=== PATIENT | male | born 1970 | race Caucasian/White ===

== ENCOUNTER 2021-06-04 14:00 | Emergency (ER) | payer MEDICAID ==
[~2021-06-04] VITALS: Ht 177.8 cm; Wt 95.3 kg
--- NOTE | 2021-06-04 14:17 | NUR ---
TO ER BED 4, C/O BILATERAL LOWER LEG SWELLING AND REDNESS FOR 1WK, AAOX4, BREATHING EVEN AND UNLABORED, AT BEDSIDE FOR EVAL
[2021-06-04] MEDS ORDERED: CEPH500C2 PO (14:26)
[2021-06-04] MEDS ORDERED: SULF1TAB48 PO (14:26)
[2021-06-04 14:32] VITALS: BP 119/81
== END 2021-06-04 14:32 | disposition home or self-care (01) ==
LOC: ER 14:08
DX: L03.116 Cellulitis of left lower limb (principal); L03.115 Cellulitis of right lower limb; J45.909 Unspecified asthma, uncomplicated; Z88.8 Allergy status to other drugs, medicaments and biological substances

== ENCOUNTER 2021-06-06 15:11 | Emergency (ER) | payer MEDICAID ==
[~2021-06-06] VITALS: Ht 177.8 cm; Wt 95.3 kg
[~2021-06-06 15:11] MED LIST: CEPH500C2 PO; SULF1TAB48 PO
--- NOTE | 2021-06-06 16:29 | NUR ---
Patient came in for BLE cellulitis follow up, on oral antibiotic. On room air, breathing evenly and unlabored. Kept comfortable, will continue to monitor accordingly.
[2021-06-06] MEDS ORDERED: VANCOMYCIN 1 GM in IV D5W 250 ML IV ONE (16:30)
--- NOTE | 2021-06-06 16:32 | NUR ---
MOVE SHEET SUBMITTED
[2021-06-06] MEDS ORDERED: PRED20TA PO (16:43)
[2021-06-06 16:53] LABS: BASOPHILS # (AUTO) 0.1 K/uL (0.0-0.2); BASOPHILS % (AUTO) 0.6 % (0.0-2.0); EOSINOPHILS % (AUTO) 5.6 % (0.0-6.0); HEMATOCRIT 41 % (39-51); HEMOGLOBIN 13.5 g/dL (13.5-17.5); LYMPHOCYTES % (AUTO) 20.1 % (20.0-44.0); MEAN CORPUSCULAR HGB CONC 33 g/dl (31.0-36.0); MEAN CORPUSCULAR VOLUME 89 fL (80-96); MONOCYTES # (AUTO) 1.1 K/uL (0.1-1.30); MONOCYTES % (AUTO) 11.2 % (2.0-12.0); NEUTROPHILS # (AUTO) 6.3 K/uL (1.8-8.9); NEUTROPHILS % (AUTO) 62.5 % (43.0-81.0); PLATELET COUNT (AUTO) 314 K/uL (150-450); WHITE BLOOD COUNT (AUTO) 10.1 K/uL (4.3-11.0)
[2021-06-06 16:59] LABS: CALCIUM, SERUM 8.6 mg/dL (8.5-10.1); CREATININE 0.8 mg/dL (0.6-1.3); POTASSIUM 3.6 mmol/L (3.5-5.1)
--- NOTE | 2021-06-06 17:39 | NUR ---
Patient discharged to home in stable condition. Written and verbal after care instructions given. Patient verbalizes understanding of instruction.IV removed. Catheter intact and site benign. Pressure and 4x4 applied to site. No bleeding noted.
[2021-06-06 17:40] VITALS: BP 121/90
== END 2021-06-06 17:41 | disposition home or self-care (01) ==
LOC: ER 15:18
DX: R60.0 Localized edema (principal); I87.2 Venous insufficiency (chronic) (peripheral); J45.909 Unspecified asthma, uncomplicated; Z88.8 Allergy status to other drugs, medicaments and biological substances; Z79.899 Other long term (current) drug therapy
CPT/HCPCS: 36415; 80048-TC; 85025-TC; 87040-TC; J3370; J7060

== ENCOUNTER 2021-06-09 11:13 | Emergency (ER) | payer MEDICAID ==
[~2021-06-09] VITALS: Ht 175.3 cm; Wt 97.5 kg
[~2021-06-09 11:13] MED LIST changes: +PRED20TA PO
[2021-06-09 11:20] VITALS: BP 108/74
[2021-06-09] MEDS ORDERED: FURO-145 PO (11:38)
== END 2021-06-09 11:52 | disposition home or self-care (01) ==
LOC: ER 11:22
DX: I87.2 Venous insufficiency (chronic) (peripheral) (principal); J45.909 Unspecified asthma, uncomplicated; Z88.8 Allergy status to other drugs, medicaments and biological substances; Z79.899 Other long term (current) drug therapy

== ENCOUNTER 2021-07-29 10:43 | Emergency (ER) | payer MEDICAID ==
[~2021-07-29] VITALS: Ht 177.8 cm; Wt 95.3 kg
[~2021-07-29 10:43] MED LIST changes: +FURO-145 PO
[2021-07-29 10:56] VITALS: BP 140/90
[2021-07-29] MEDS ORDERED: SULF1TAB48 PO (11:11)
[2021-07-29] MEDS ORDERED: CEPH500C2 PO (11:11)
== END 2021-07-29 11:23 | disposition home or self-care (01) ==
LOC: ER 10:44
DX: L02.811 Cutaneous abscess of head [any part, except face] (principal); J45.909 Unspecified asthma, uncomplicated; Z88.8 Allergy status to other drugs, medicaments and biological substances; Z79.899 Other long term (current) drug therapy

== ENCOUNTER 2021-07-31 15:00 | Emergency (ER) | payer MEDICAID ==
[~2021-07-31] VITALS: Ht 177.8 cm; Wt 95.3 kg
[2021-07-31 16:25] VITALS: BP 136/90
--- NOTE | 2021-07-31 16:30 | NUR ---
BIBSELCynthia C/O HEAD BUMP WITH REDNESS AND PUSS WORST TODAY, WAS SEEN IN ER 2DAYS AGO, ON ANTIBIOTIC. WILL CONTINUE TO MONITOR THE PATIENT.
--- NOTE | 2021-07-31 17:38 | NUR ---
Patient discharged to home in stable condition. Written and verbal after care instructions given. Patient verbalizes understanding of instruction. PT ambulatory with a steady gait. DRESSING KEPT C/D/I/
== END 2021-07-31 17:38 | disposition home or self-care (01) ==
LOC: ER 15:05
DX: L02.811 Cutaneous abscess of head [any part, except face] (principal); J45.909 Unspecified asthma, uncomplicated; Z88.6 Allergy status to analgesic agent; Z79.899 Other long term (current) drug therapy
CPT/HCPCS: 87070; 87077; 99283; A6403

== ENCOUNTER 2021-08-01 20:10 | Emergency (ER) | payer MEDICAID ==
--- NOTE | 2021-08-01 20:51 | NUR ---
CALLED FOR TRIAGE NO ANSWER
--- NOTE | 2021-08-01 20:54 | NUR ---
CALLED FOR TRIAGE NO ANSWER
--- NOTE | 2021-08-01 21:51 | NUR ---
CALLED FOR TRIAGE. NO RESPONSE
== END 2021-08-01 21:53 | disposition left against medical advice (07) ==
LOC: ER 20:12
DX: Z02.89 Encounter for other administrative examinations (principal); Z53.21 Procedure and treatment not carried out due to patient leaving prior to being seen by health care provider

== ENCOUNTER 2021-08-02 15:19 | Emergency (ER) | payer MEDICAID ==
[~2021-08-02] VITALS: Ht 177.8 cm; Wt 90.7 kg
[2021-08-02 15:24] VITALS: BP 128/81
--- NOTE | 2021-08-02 15:25 | NUR ---
PT CAME TO ER FOR F/U CHECK OF HEAD ABSCESS. HE WAS HERE 2 DAYS AGO. A&OX4. ABSCESS IS PINK IN COLOR, NO DRAINAGE.
--- NOTE | 2021-08-02 16:20 | NUR ---
Patient discharged to home in stable condition. Written and verbal after care instructions given. Patient verbalizes understanding of instruction.
== END 2021-08-02 16:20 | disposition home or self-care (01) ==
LOC: ER 15:24
DX: Z48.01 Encounter for change or removal of surgical wound dressing (principal); L02.811 Cutaneous abscess of head [any part, except face]; J45.909 Unspecified asthma, uncomplicated; Z88.8 Allergy status to other drugs, medicaments and biological substances; Z79.899 Other long term (current) drug therapy

== ENCOUNTER 2022-11-05 06:46 | Emergency (ER) | payer MEDICAID ==
[~2022-11-05] VITALS: Ht 177.8 cm; Wt 90.7 kg
[~2022-11-05 06:46] MED LIST changes: +ALBU2.5V38 NEB; -CEPH500C2 PO; +CLIN300C12 PO; -FURO-145 PO; -SULF1TAB48 PO
[2022-11-05] MEDS ORDERED: ALBU18HF2 INH (07:12)
[2022-11-05] MEDS ORDERED: PRED50TA PO (07:12)
[2022-11-05] MEDS ORDERED: CLOT15CR5 TP (07:12)
[2022-11-05] MEDS ORDERED: IPRATROPIUM NEB FS 0.5 MG/2.5 ML AMPUL.NEB ONE ×2 (07:17→08:35)
[2022-11-05] MEDS ORDERED: ALBUTEROL FS 2.5 MG/3 ML VIAL.NEB ONE ×2 (07:17→08:35)
[2022-11-05] MEDS ORDERED: IPRATROPIUM NEB FS 0.5 MG/2.5 ML AMPUL.NEB NEB ONE ×2 (07:30→08:30)
[2022-11-05] MEDS ORDERED: predniSONE 50 MG TABLET PO ONE (07:30)
[2022-11-05] MEDS ORDERED: ALBUTEROL FS 2.5 MG/3 ML VIAL.NEB CONTNEB ONE ×2 (07:30→08:30)
[2022-11-05] MEDS ORDERED: predniSONE 20 MG TABLET ONE (07:41)
--- NOTE | 2022-11-05 08:22 | NUR ---
Dr. Stone at bedside.
--- NOTE | 2022-11-05 09:28 | NUR ---
Patient discharged to home in stable condition. Written and verbal after care instructions given. Patient verbalizes understanding of instruction.
[2022-11-05 09:30] VITALS: BP 123/76
== END 2022-11-05 09:32 | disposition home or self-care (01) ==
LOC: ER 06:50
DX: J45.909 Unspecified asthma, uncomplicated (principal); L30.9 Dermatitis, unspecified; Z88.8 Allergy status to other drugs, medicaments and biological substances; Z60.2 Problems related to living alone; Z79.899 Other long term (current) drug therapy
CPT/HCPCS: 99285; 94799; 94640 ×2; J7512

== ENCOUNTER 2023-09-15 03:07 | Emergency (ER) | payer MEDICAID ==
[~2023-09-15] VITALS: Ht 177.8 cm; Wt 90.7 kg
[~2023-09-15 03:07] MED LIST changes: +ALBU18HF2 INH; +CLOT15CR5 TP; +PRED50TA PO
[2023-09-15 04:17] VITALS: BP 141/79; TEMP 97.9; O2SAT 98
[2023-09-15] MEDS ORDERED: CEPH500T PO (04:36)
[2023-09-15] MEDS ORDERED: SULF1TAB48 PO (04:36)
[2023-09-15] MEDS ORDERED: CEPHALEXIN MONOHYDRATE 500 MG CAPSULE PO ONE ×2 (04:43→05:00)
[2023-09-15] MEDS ORDERED: SULFAMETH/TRIMETH 800/160 MG 1 UDTAB TABLET ONE (04:44)
[2023-09-15] MEDS ORDERED: SULFAMETH/TRIMETH 800/160 MG 1 UDTAB TABLET PO ONE (05:00)
== END 2023-09-15 04:59 | disposition home or self-care (01) ==
LOC: ER 03:14
DX: L02.31 Cutaneous abscess of buttock (principal); J45.909 Unspecified asthma, uncomplicated; F17.200 Nicotine dependence, unspecified, uncomplicated; Z79.899 Other long term (current) drug therapy; Z60.2 Problems related to living alone; Z88.1 Allergy status to other antibiotic agents

== ENCOUNTER 2023-10-05 14:27 | Emergency (ER) | payer MEDICAID ==
[~2023-10-05] VITALS: Ht 177.8 cm; Wt 90.7 kg
[~2023-10-05 14:27] MED LIST changes: +CEPH500T PO; +SULF1TAB48 PO
[2023-10-05] MEDS ORDERED: SULF1TAB48 PO (15:10)
[2023-10-05] MEDS ORDERED: CEPH500C2 PO (15:10)
[2023-10-05 15:22] VITALS: BP 112/81; TEMP 98.1; O2SAT 97
== END 2023-10-05 15:22 | disposition home or self-care (01) ==
LOC: ER 14:34
DX: L03.317 Cellulitis of buttock (principal); J45.909 Unspecified asthma, uncomplicated; Z88.8 Allergy status to other drugs, medicaments and biological substances; Z60.2 Problems related to living alone

== ENCOUNTER 2023-12-13 08:59 | Emergency (ER) | payer MEDICAID ==
[~2023-12-13] VITALS: Ht 177.8 cm; Wt 90.7 kg
[~2023-12-13 08:59] MED LIST changes: +CEPH500C2 PO
[2023-12-13 09:14] VITALS: TEMP 98.5
[2023-12-13] MEDS ORDERED: LIDOCAINE HCL/MPF 1% 30 ML VIAL IJ ONE (09:40)
[2023-12-13] MEDS ORDERED: CEFTRIAXONE 1 G VIAL ONE (10:33)
[2023-12-13] MEDS ORDERED: LIDOCAINE /MPF 1% VIAL 5 ML VIAL ONE (10:33)
[2023-12-13] MEDS ORDERED: SULFAMETH/TRIMETH 800/160 MG 1 UDTAB TABLET ONE (10:34)
[2023-12-13] MEDS ORDERED: CEPH500C2 PO (10:35)
[2023-12-13] MEDS ORDERED: SULF1TAB48 PO (10:35)
[2023-12-13] MEDS: CEFTRIAXONE 1 G VIAL IM ONE (10:46)
[2023-12-13] MEDS: SULFAMETH/TRIMETH 800/160 MG 1 UDTAB TABLET PO ONE (10:47)
[2023-12-13 10:53] VITALS: BP 124/77; O2SAT 97
== END 2023-12-13 10:53 | disposition home or self-care (01) ==
LOC: ER 08:59
DX: L02.31 Cutaneous abscess of buttock (principal); J45.909 Unspecified asthma, uncomplicated; F17.200 Nicotine dependence, unspecified, uncomplicated; Z88.8 Allergy status to other drugs, medicaments and biological substances; Z60.2 Problems related to living alone; Z79.899 Other long term (current) drug therapy
CPT/HCPCS: 99283; 10060; 96372; J0696; J3490 ×2; A6407

== ENCOUNTER 2023-12-16 22:37 | Emergency (ER) | payer MEDICAID ==
[~2023-12-16] VITALS: Ht 177.8 cm; Wt 90.7 kg
[2023-12-17 00:56] VITALS: BP 135/80; TEMP 98; O2SAT 100
== END 2023-12-17 00:56 | disposition home or self-care (01) ==
LOC: ER 22:39
DX: L02.31 Cutaneous abscess of buttock (principal); J45.909 Unspecified asthma, uncomplicated; F17.200 Nicotine dependence, unspecified, uncomplicated; Z88.8 Allergy status to other drugs, medicaments and biological substances; Z60.2 Problems related to living alone; Z79.899 Other long term (current) drug therapy

== ENCOUNTER 2024-02-07 05:05 | Emergency (ER) | payer MEDICAID ==
[~2024-02-07] VITALS: Ht 177.8 cm; Wt 97.5 kg
[2024-02-07 06:52] LABS: CALCIUM, SERUM 9.1 mg/dL (8.5-10.1); CREATININE 0.8 mg/dL (0.6-1.3); POTASSIUM 3.8 mmol/L (3.5-5.1)
[2024-02-07 07:13] LABS: ALBUMIN 3.2 g/dL (3.4-5.0); BILIRUBIN,TOTAL 0.2 mg/dL (0.2-1.0); TOTAL PROTEIN, SERUM 7.6 g/dL (6.4-8.2)
[2024-02-07] MEDS ORDERED: predniSONE 20 MG TABLET ONE (07:13)
[2024-02-07] MEDS: predniSONE 20 MG TABLET PO ONE (07:17)
[2024-02-07 07:20] LABS: HEMATOCRIT 39 % (39-51); MEAN CORPUSCULAR VOLUME 85 fL (80-96); RED BLOOD CELL COUNT(AUTO) 4.55 MIL/uL (4.5-6.0); WHITE BLOOD COUNT (AUTO) 7.6 K/uL (4.3-11.0)
[2024-02-07 07:21] LABS: BASOPHILS % (AUTO) 0.7 % (0.0-2.0); LYMPHOCYTES % (AUTO) 32.1 % (20.0-44.0); MEAN CORPUSCULAR HEMOGLOBIN 28 PG (26.0-33.0); MEAN CORPUSCULAR HGB CONC 29 g/dl (31.0-36.0); MONOCYTES % (AUTO) 11.1 % (2.0-12.0); NEUTROPHILS % (AUTO) 50.1 % (43.0-81.0); PLATELET COUNT (AUTO) 303 K/uL (150-450); RED CELL DISTRIBUTION WIDTH 14.4 % (11.5-15.0)
[2024-02-07] MEDS: VALACYCLOVIR HCL 500 MG TABLET PO ONE (08:00)
[2024-02-07] MEDS ORDERED: PRED20TA PO (08:42)
[2024-02-07] MEDS ORDERED: VALA10002 PO (08:42)
[2024-02-07 08:51] VITALS: BP 128/96; TEMP 98.3; O2SAT 99
== END 2024-02-07 08:51 | disposition home or self-care (01) ==
LOC: ER 05:07
DX: G51.0 Bell's palsy (principal); J45.909 Unspecified asthma, uncomplicated; F17.200 Nicotine dependence, unspecified, uncomplicated; Z88.8 Allergy status to other drugs, medicaments and biological substances; Z60.2 Problems related to living alone; Z79.899 Other long term (current) drug therapy
CPT/HCPCS: 99284; 70450; 93005; 85025; 36415; 80053; J7512

== ENCOUNTER 2024-02-18 05:59 | Emergency (ER) | payer MEDICAID ==
[~2024-02-18] VITALS: Ht 182.9 cm; Wt 69.9 kg
[~2024-02-18 05:59] MED LIST changes: +VALA10002 PO
[2024-02-18 06:35] VITALS: BP 134/79; TEMP 98.8
[2024-02-18] MEDS ORDERED: CLIN300C12 PO (06:41)
[2024-02-18] MEDS ORDERED: CLINDAMYCIN HCL 150 MG CAPSULE ONE (07:22)
[2024-02-18] MEDS: CLINDAMYCIN HCL 150 MG CAPSULE PO ONE (07:26)
[2024-02-18 07:29] VITALS: O2SAT 98
== END 2024-02-18 07:29 | disposition home or self-care (01) ==
LOC: ER 05:59
DX: L03.317 Cellulitis of buttock (principal); J45.909 Unspecified asthma, uncomplicated; F17.200 Nicotine dependence, unspecified, uncomplicated; Z86.59 Personal history of other mental and behavioral disorders; Z88.8 Allergy status to other drugs, medicaments and biological substances; Z60.2 Problems related to living alone

== ENCOUNTER 2024-06-12 17:09 | Emergency (ER) | payer MEDICAID ==
[~2024-06-12] VITALS: Ht 177.8 cm; Wt 90.7 kg
[2024-06-12] MEDS ORDERED: APIX5TAB4 PO (18:39)
[2024-06-12 19:07] VITALS: BP 132/82; TEMP 98.2; O2SAT 96
== END 2024-06-12 19:09 | disposition home or self-care (01) ==
LOC: ER 17:14
DX: I82.401 Acute embolism and thrombosis of unspecified deep veins of right lower extremity (principal); J45.909 Unspecified asthma, uncomplicated; F17.200 Nicotine dependence, unspecified, uncomplicated; Z79.899 Other long term (current) drug therapy; Z79.1 Long term (current) use of non-steroidal anti-inflammatories (NSAID); Z79.52 Long term (current) use of systemic steroids; Z60.2 Problems related to living alone; Z88.1 Allergy status to other antibiotic agents
CPT/HCPCS: 73590-TC; 93971-TC